=== PATIENT | female | born 1980 ===

== ENCOUNTER 2017-10-10 12:40 | Emergency (ER) | payer OTHER ==
[~2017-10-10] VITALS: Ht 160 cm; Wt 65.8 kg
== END 2017-10-10 18:00 | disposition home or self-care (01) ==
LOC: ER 12:40
DX: B34.9 Viral infection, unspecified (principal)

== ENCOUNTER → 2019-06-13 | Outpatient (CLI) | payer OTHER | END | disposition home or self-care (01) | LOC: NST 13:34 | DX: O32.1XX0 Maternal care for breech presentation, not applicable or unspecified (principal); Z3A.38 38 weeks gestation of pregnancy ==

== ENCOUNTER 2019-06-27 13:28 | Outpatient (CLI) | payer OTHER | END 2019-06-27 17:22 | disposition home or self-care (01) | LOC: NST 13:28 | DX: Z34.83 Encounter for supervision of other normal pregnancy, third trimester (principal) ==

== ENCOUNTER 2019-07-01 11:04 | Outpatient (CLI) | payer OTHER | END 2019-07-01 11:55 | disposition home or self-care (01) | LOC: NST 11:04 | DX: Z34.83 Encounter for supervision of other normal pregnancy, third trimester (principal) ==